=== PATIENT | female | born 1995 | race Caucasian/White ===

== ENCOUNTER 2016-07-31 08:57 | Observation (INO) | payer OTHER ==
[~2016-07-31] VITALS: Ht 167.6 cm; Wt 65.0 kg
[2016-07-31] MEDS ORDERED: ONDANSETRON INJ 2 MG/ML 2 ML VIAL IV STA (09:27)
[2016-07-31] MEDS ORDERED: SODIUM CHLORIDE 0.9% 1000ML 1,000 ML IV STA (09:27)
[2016-07-31] MEDS ORDERED: KETOROLAC TROMETHAMINE 30 MG/ML VIAL IV STA (09:27)
[2016-07-31 09:41] LABS: URINE APPEARANCE CLOUDY (CLEAR); URINE BILIRUBIN NEG (NEG); URINE COLOR YELLOW; URINE NITRITE NEG (NEG); URINE PH 7.5 (4.5-7.5); URINE SPECIFIC GRAVITY 1.015 (1.000-1.030); UROBILINOGEN NEG (NEG); ZZUR CULT IF INDIC CLEAN CATCH NO
[2016-07-31 09:41] LABS: BASO % 0.5 %; BASO ABS # 0.03 K/uL (0-0.2); COMPLETE YES; EOS % 1.2 %; HEMATOCRIT 40.7 % (37-47); IG% 0.2 %; LYMPH ABS # 2.49 K/uL (1.2-3.4); MEAN CELL VOLUME 88.7 fL (80-100); MEAN CORPUSCULAR HEMOGLOBIN 30.1 pg (25-34); MEAN CORPUSCULAR HGB CONC 33.9 g/dl (32-36); MEAN PLATELET VOLUME 10.2 fL (7.4-10.4); MONO % 5.3 %; NEUT % 51.8 %; PLATELET COUNT 218 K/uL (130-400); RED BLOOD COUNT 4.59 M/uL (4.2-5.4); WHITE BLOOD COUNT 6.07 K/uL (4.8-10.8)
[2016-07-31 09:43] LABS: MANUAL MICROSCOPIC REQUIRED? NO; REVIEW REQ? NO
[2016-07-31] MEDS ORDERED: OPTIRAY 320 IV PRN (09:45)
[2016-07-31 09:58] LABS: AST/SGOT 43 U/L (15-37); BLOOD UREA NITROGEN 14 mg/dl (7-18); BUN/CREATININE RATIO 20.2 (10-20); CALCIUM 9.1 mg/dl (8.5-10.1); CARBON DIOXIDE 29 mmol/L (21-32); CHLORIDE 106 mmol/L (98-107); CREATININE 0.69 mg/dl (0.60-1.20); GLUCOSE 82 mg/dl (70-99); POTASSIUM 4.3 mmol/L (3.5-5.1); SODIUM 141 mmol/L (136-145)
[2016-07-31 10:00] LABS: ALKALINE PHOSPHATASE 72 U/L (45-117); ALT/SGPT 79 U/L (12-78)
--- NOTE | 2016-07-31 12:12 | DIAGNOSTIC IMAGING REPORT ---
CT OF THE ABDOMEN AND PELVIS WITH CONTRAST CLINICAL HISTORY: Periumbilical pain. COMPARISON STUDY: None. TECHNIQUE: Following IV administration of 118 mL of Optiray-320, axial images of the abdomen and pelvis were obtained from the lung bases to the proximal femurs. Images were reviewed in the axial, sagittal, and coronal planes. IV contrast was administered without complication. Oral contrast was administered. CT DOSE: 284.23 mGy.cm FINDINGS: The lung bases are clear. Liver, spleen, adrenal glands, kidneys and pancreas are normal. There is no peripancreatic or pericholecystic infiltration. There is no biliary or pancreatic ductal dilatation. The caliber and wall thickness of small and large bowel are normal. The appendix is mildly dilated and fluid-filled. The appendix measures 7 mm in caliber. There is mild periappendiceal infiltration with no free air or abscess. Trace fluid within the pelvis is noted. The ovaries are not enlarged. Skeletal structures are unremarkable. IMPRESSION: Acute appendicitis. No free air or abscess. Mildly dilated, fluid-filled retrocecal appendix with mild periappendiceal infiltration. Electronically signed by: Yoel Polo M.D. 07/31/2016 12:11 PM Dictated Date/Time: 07/31/2016 12:07 PM
[2016-07-31] MEDS ORDERED: CEFOXITIN SOD 2 GM VIAL IV STA (12:56)
--- NOTE | 2016-07-31 12:56 | History and Physical ---
History & Physical Date Jul 31, 2016. 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 Past Medical/Surgical History Medical Problems: (1) Mononucleosis Additional History Hepatic Disease: No Endocrine Disorder: No Kidney Disease: No Hypertension: No Heart Disease: No Bleeding Tendencies: No Allergies Coded Allergies: No Known Allergies (Unverified , 07/31/16) Home Medications No Active Prescriptions or Reported Meds Physical Examination Skin: warm/dry Eyes: sclerae normal Head: atraumatic Neck: supple Respiratory/Chest: no respiratory distress Cardiovascular: regular rate, rhythm Abdomen / GI: normal bowel sounds, + pertinent finding (tender- Rt side) Extremities: normal inspection Neurologic/Psych: alert Diagnosis acute appendicitis Plan of Treatment for laparoscopic appendectomy, possible open operation admit for observation
[2016-07-31] MEDS ORDERED: BUPIVACAINE 0.5 % 5 MG/1 ML MPF 30ML VIAL ONE (13:17)
[2016-07-31] MEDS ORDERED: SUCCINYLCHOLINE 100MG/5ML SYR IV ONE (13:43)
[2016-07-31] MEDS ORDERED: LIDOCAINE HCL 2% 2 ML VIAL (20MG/ML) ONE (13:43)
[2016-07-31] MEDS ORDERED: PROPOFOL IV EMULSION 10 MG/ML 20 ML VIAL IV ONE (13:43)
[2016-07-31] MEDS ORDERED: MIDAZOLAM HCL 1 MG/ML 2ML VIAL ONE (13:44)
[2016-07-31] MEDS ORDERED: FENTANYL CITRATE INJ 50 MCG/1 ML 2 ML VIAL ONE ×2 (13:44→15:00)
[2016-07-31] MEDS ORDERED: GLYCOPYRROLATE INJ 0.2 MG/ML VIAL ONE (14:29)
[2016-07-31] MEDS ORDERED: KETOROLAC TROMETHAMINE 30 MG/ML VIAL ONE (14:29)
[2016-07-31] MEDS ORDERED: ROCURONIUM BROMIDE 10 MG/ML 5 ML VIAL ONE (14:29)
[2016-07-31] MEDS ORDERED: ONDANSETRON INJ 2 MG/ML 2 ML VIAL ONE (14:29)
[2016-07-31] MEDS ORDERED: DEXAMETHASONE SOD INJ 4 MG/ML VIAL ONE (14:29)
[2016-07-31] MEDS ORDERED: NEOSTIGMINE METHYLSULFATE 5 MG/5 ML SYR ONE (14:29)
[2016-07-31] MEDS ORDERED: ONDANSETRON INJ 2 MG/ML 2 ML VIAL IV PRN ×2 (15:15)
[2016-07-31] MEDS ORDERED: HYDROCODONE/ACETAMOPHEN 5/325MG TAB PO PRN (15:15)
[2016-07-31] MEDS ORDERED: EpHEDrine SULFATE INJ 50 MG/ML AMP IV PRN (15:15)
[2016-07-31] MEDS ORDERED: HYDROmorphone INJ 1 MG/ML SYR IV PRN (15:15)
[2016-07-31] MEDS ORDERED: FENTANYL CITRATE INJ 50 MCG/1 ML 2 ML VIAL IV PRN (15:15)
[2016-07-31] MEDS ORDERED: MoRPHine SULFATE 4 MG/ML 1 ML CARP\\VIAL IV PRN (15:15)
[2016-07-31] MEDS ORDERED: PROMETHAZINE HCL INJ 6.25 MG in SODIUM CHLORIDE 0.9% 50ML 50 ML IV PRN (15:15)
[2016-07-31] MEDS ORDERED: ATROPINE SULFATE 0.1 MG/ML 5ML SYR IV PRN (15:15)
[2016-07-31] MEDS ORDERED: PROMETHAZINE HCL INJ 25 MG in SODIUM CHLORIDE 0.9% 50ML 50 ML IV PRN (15:15)
[2016-07-31] MEDS ORDERED: HYDR-5688 PO (15:19)
--- NOTE | 2016-07-31 15:21 | Discharge Instructions ---
Discharge Instructions Admission Reason for Admission: Severe Stomach Pain Discharge Discharge Diagnosis / Problem: acute appendicitis Discharge Goals Goal(s): Decrease discomfort, Improve function, Improve disease control Activity Recommendations Activity Limitations: as noted below Lifting Limitations: no more than 25 pounds Exercise/Sports Limitations: until after follow-up appointment May Resume Sexual Activity: when tolerated Shower/Bathe: tomorrow Driving or Machine Use: resume 3 days after discharge SPECIAL CARE INSTRUCTIONS: * Cover incisions and change daily for comfort/drainage. * Leave steri strips and may leave uncovered with dermabond * May use ibuprofen for pain as tolerated. * Expect some swelling and bruising. Call your doctor if: * Temperature above 101 degrees * Pain not relieved by pain medicine ordered * There is increased drainage or redness from any incision * You have any unanswered questions or concerns [phone]. FOLLOW UP VISIT: If not already scheduled, please call the office for a follow-up visit. for 1-2 weeks- for checkup- no sutures to remove OFFICE PHONE NUMBER: Dr. Bradshaw Office . Current Hospital Diet Patient's current hospital diet: Regular Diet Discharge Diet Recommended Diet: Regular Diet Procedures Procedures Performed: Laparoscopic Appendectomy Pending Studies Studies pending at discharge: no School Instructions Return To School: 1 week (will need at least 1 week recovery from school) Medical Emergencies . Who to Call and When: Medical Emergencies: If at any time you feel your situation is an emergency, please call 911 immediately. . Non-Emergent Contact Non-Emergency issues call your: Surgeon . "Provider Documentation" section prepared by Mehran rBadshaw. VTE Core Measure Inpt VTE Proph given/why not?: SCD's
[2016-07-31] MEDS ORDERED: IV FLUIDS COMPLETED PRN (15:30)
[2016-07-31] MEDS ORDERED: DiphenhydrAMINE HCL 50 MG/ML VIAL ONE (15:37)
[2016-07-31] MEDS ORDERED: NURSING VERBAL MED ORDER ONE (16:00)
[2016-07-31 16:10] VITALS: BP_SYST 113; BP_SYST 114; BP_DIAS 70; BP_DIAS 74; PULSE 55; TEMP 36.7; TEMP 37; O2SAT 100; Ht 167.6 cm; Wt 65.0 kg
[2016-07-31 16:41] VITALS: BP 112/72; PULSE 59; TEMP 36.7; O2SAT 98
--- NOTE | 2016-07-31 16:45 | Anesthesiology Progress Note ---
Anesthesia Post Op Note Date & Time Jul 31, 2016 at 16:45 Vital Signs Pain Intensity: 0 Vital Signs Past 12 Hours Date Time Temp Pulse Resp B/P Pulse Ox O2 Delivery O2 Flow Rate FiO2 07/31/16 16:41 36.7 59 16 112/72 98 Room Air 07/31/16 16:10 36.7 55 17 114/74 100 Room Air 07/31/16 15:55 36.4 61 16 115/72 100 Room Air 07/31/16 15:45 66 16 117/77 100 Room Air 07/31/16 15:35 69 16 117/71 100 Room Air 07/31/16 15:25 52 16 113/69 100 Mask 10 07/31/16 15:15 51 16 118/72 99 Mask 10 07/31/16 15:07 36.6 61 16 111/69 99 Mask 10 07/31/16 13:34 66 20 121/87 99 Room Air 07/31/16 12:37 69 16 135/76 98 Room Air 07/31/16 10:54 57 16 104/57 100 Room Air 07/31/16 09:03 36.5 73 16 108/65 97 Room Air Notes Mental Status: alert / awake / arousable, participated in evaluation Pt Amnestic to Procedure: Yes Nausea / Vomiting: adequately controlled Pain: adequately controlled Airway Patency, RR, SpO2: stable & adequate BP & HR: stable & adequate Hydration State: stable & adequate Anesthetic Complications: no major complications apparent
--- NOTE | 2016-07-31 17:03 | EMERGENCY ROOM VISIT NOTE ---
History Report prepared by Radhaibhenry: Kei Medina Under the Supervision of: Dr. Chris Morataya D.O. First contact with patient: 09:18 Chief Complaint: ABDOMINAL PAIN Stated Complaint: SEVERE STOMACH PAIN Nursing Triage Summary: Triage Note: Pt reports she was dx with mono several weeks ago. pt reports generalized abd pain started this am. pt denies any nausea, vomitting, diarrhea, constipation. History of Present Illness The patient is a 21 year old female who presents to the Emergency Room with complaints of persistent diffuse abdominal pain that started when she woke up this morning. The pain is cramping in nature and is worsened with movement. The patient had similar pain when she was first diagnosed with [place] two weeks ago. There are no relieving factors known to the patient at this time. The patient's last bowel movement was this morning which was normal and did not contain blood. The patient still has her gallbladder and appendix and has not had any abdominal surgeries. The patient did not eat or drink this morning and did not have anything unusual to eat or drink last night. She denies any medical problems. LNMP was two weeks ago. She denies headache, change in vision, fevers , chest pain, shortness of breath, nausea, vomiting, diarrhea, pain with urination, melena, and vaginal bleeding or discharge. Source of History: patient Onset: this morning Position: abdomen Quality: cramping Timing: other (persistent) Modifying Factors (Worsening): movement Associated Symptoms: No SOB, No chest pain, No diarrhea, No fevers, No headache, No melena, No nausea, No urinary symptoms, No vomiting Review of Systems See HPI for pertinent positives & negatives. A total of 10 systems reviewed and were otherwise negative. Past Medical & Surgical Medical Problems: (1) Acute appendicitis (2) Mononucleosis Family History No pertinent family history Social History Smoking Status: Never Smoker Occupation Status: [employer] student Current/Historical Medications Scheduled PRN Hydrocodone/Acetaminophen 5MG/325MG ([place] 5MG/325MG), 1-2 TABLET PO q 6 hrs PRN for Pain Allergies Coded Allergies: No Known Allergies (Unverified , 07/31/16) Physical Exam Vital Signs Date Time Temp Pulse Resp B/P Pulse Ox O2 Delivery O2 Flow Rate FiO2 07/31/16 15:07 36.6 61 16 111/69 99 Mask 10 07/31/16 13:34 66 20 121/87 99 Room Air 07/31/16 12:37 69 16 135/76 98 Room Air 07/31/16 10:54 57 16 104/57 100 Room Air 07/31/16 09:03 36.5 73 16 108/65 97 Room Air Physical Exam GENERAL: Sitting up in bed, alert, well appearing, well nourished, no distress, non-toxic EYE EXAM: normal conjunctiva. OROPHARYNX: no exudate, no erythema, lips, buccal mucosa, and tongue normal and mucous membranes are moist NECK: supple, no nuchal rigidity, no adenopathy, non-tender LUNGS: Clear to auscultation. Normal chest wall mechanics HEART: no murmurs, S1 normal and S2 normal ABDOMEN: abdomen soft, non-tender, normo-active bowel sounds, no masses, no rebound or guarding. BACK: Back is symmetrical on inspection and there is no deformity, no midline tenderness, no CVA tenderness. SKIN: no rashes and no bruising UPPER EXTREMITIES: upper extremities are grossly normal. LOWER EXTREMITIES: No pitting edema. NEURO EXAM: Normal sensorium, cranial nerves II-XII grossly intact, normal speech, no gross weakness of arms, no gross weakness of legs. Gross sensation intact. Medical Decision & Procedures ER Provider Diagnostic Interpretation: CT:Per my review, radiologist interpretation. CT OF THE ABDOMEN AND PELVIS WITH CONTRAST CLINICAL HISTORY: Periumbilical pain. COMPARISON STUDY: None. TECHNIQUE: Following IV administration of 118 mL of Optiray-320, axial images of the abdomen and pelvis were obtained from the lung bases to the proximal femurs. Images were reviewed in the axial, sagittal, and coronal planes. IV contrast was administered without complication. Oral contrast was administered. CT DOSE: 284.23 mGy.cm FINDINGS: The lung bases are clear. Liver, spleen, adrenal glands, kidneys and pancreas are normal. There is no peripancreatic or pericholecystic infiltration. There is no biliary or pancreatic ductal dilatation. The caliber and wall thickness of small and large bowel are normal. The appendix is mildly dilated and fluid-filled. The appendix measures 7 mm in caliber. There is mild periappendiceal infiltration with no free air or abscess. Trace fluid within the pelvis is noted. The ovaries are not enlarged. Skeletal structures are unremarkable. IMPRESSION: Acute appendicitis. No free air or abscess. Mildly dilated, fluid-filled retrocecal appendix with mild periappendiceal infiltration. Electronically signed by: Yoel Polo M.D. 07/31/2016 12:11 PM Dictated Date/Time: 07/31/2016 12:07 PM Laboratory Results 07/31/16 09:15 Red Blood Count 4.59, Mean Corpuscular Volume 88.7, Mean Corpuscular Hemoglobin 30.1, Mean Corpuscular Hemoglobin Concent 33.9, Mean Platelet Volume 10.2, Neutrophils (%) (Auto) 51.8, Lymphocytes (%) (Auto) 41.0, Monocytes (%) (Auto) 5.3, Eosinophils (%) (Auto) 1.2, Basophils (%) (Auto) 0.5, Neutrophils # (Auto) 3.15, Lymphocytes # (Auto) 2.49, Monocytes # (Auto) 0.32, Eosinophils # (Auto) 0.07, Basophils # (Auto) 0.03 07/31/16 09:15 Test 07/31/16 09:10 07/31/16 09:15 Urine Color YELLOW Urine Appearance CLOUDY (CLEAR) Urine pH 7.5 (4.5-7.5) Urine Specific [place] 1.015 (1.000-1.030) Urine Protein NEG (NEG) Urine Glucose (UA) NEG (NEG) Urine Ketones NEG (NEG) Urine Occult Blood NEG (NEG) Urine Nitrite NEG (NEG) Urine Bilirubin NEG (NEG) Urine Urobilinogen NEG (NEG) Urine Leukocyte Esterase NEG (NEG) Urine WBC (Auto) 1-5 /hpf (0-5) Urine RBC (Auto) 0-4 /hpf (0-4) Urine Hyaline Casts (Auto) 0 /lpf (0-5) Urine Epithelial Cells (Auto) 5-10 /lpf (0-5) Urine Bacteria (Auto) NEG (NEG) Urine Test NEG (NEG) White Blood Count 6.07 K/uL (4.8-10.8) Red Blood Count 4.59 M/uL (4.2-5.4) Hemoglobin 13.8 g/dL (12.0-16.0) Hematocrit 40.7 % (37-47) Mean Corpuscular Volume 88.7 fL (80-100) Mean Corpuscular Hemoglobin 30.1 pg (25-34) Mean Corpuscular Hemoglobin Concent 33.9 g/dl (32-36) Platelet Count 218 K/uL (130-400) Mean Platelet Volume 10.2 fL (7.4-10.4) Neutrophils (%) (Auto) 51.8 % Lymphocytes (%) (Auto) 41.0 % Monocytes (%) (Auto) 5.3 % Eosinophils (%) (Auto) 1.2 % Basophils (%) (Auto) 0.5 % Neutrophils # (Auto) 3.15 K/uL (1.4-6.5) Lymphocytes # (Auto) 2.49 K/uL (1.2-3.4) Monocytes # (Auto) 0.32 K/uL (0.11-0.59) Eosinophils # (Auto) 0.07 K/uL (0-0.5) Basophils # (Auto) 0.03 K/uL (0-0.2) RDW Standard Deviation 39.9 fL (36.4-46.3) RDW Coefficient of Variation 12.5 % (11.5-14.5) Immature Granulocyte % (Auto) 0.2 % Immature Granulocyte # (Auto) 0.01 K/uL (0.00-0.02) Anion Gap 6.0 mmol/L (3-11) Est Creatinine Clear Calc Drug Dose 120.7 ml/min Estimated GFR () 144.2 Estimated GFR (Non- 124.4 BUN/Creatinine Ratio 20.2 (10-20) Calcium Level 9.1 mg/dl (8.5-10.1) Total Bilirubin 0.3 mg/dl (0.2-1) Direct Bilirubin < 0.1 mg/dl (0-0.2) Aspartate Amino Transf (AST/SGOT) 43 U/L (15-37) Alanine Aminotransferase (ALT/SGPT) 79 U/L (12-78) Alkaline Phosphatase 72 U/L (45-117) Total Protein 7.1 gm/dl (6.4-8.2) Albumin 3.7 gm/dl (3.4-5.0) Lipase 119 U/L (73-393) Laboratory results per my review. Medications Administered Medications (Trade) Dose Ordered Sig/Jn Route Start Time Stop Time Status Last Admin Dose Admin Sodium Chloride (Nss 1000ml) 1,000 ml @ 999 mls/hr Q1H1M STAT IV 07/31/16 09:27 07/31/16 10:27 DC 07/31/16 09:36 999 MLS/HR Ondansetron HCl (Zofran Inj) 4 mg NOW STAT IV 07/31/16 09:27 07/31/16 09:28 DC 07/31/16 09:35 4 MG Ketorolac Tromethamine (Toradol Inj) 30 mg NOW STAT IV 07/31/16 09:27 07/31/16 09:28 DC 07/31/16 09:34 30 MG Cefoxitin Sodium (Mefoxin IV) 2,000 mg NOW STAT IV 07/31/16 12:56 07/31/16 12:59 DC 07/31/16 13:30 2,000 MG Bupivacaine HCl (Marcaine 0.5% MPF Inj) 30 ml STK-MED ONCE .ROUTE 07/31/16 13:17 07/31/16 13:20 DC 07/31/16 13:17 8 ML ED Course ED COURSE: Vital signs were reviewed and were normal. The patients medical record was reviewed The above diagnostic studies were performed and reviewed. ED treatments and interventions as stated above. 0922: The patient was evaluated in room A4b. A complete history and physical examination was performed. 0927: Toradol 30 mg IV, Zofran 4 mg IV, NSS 1000 ml @ 999 mls/hr. 1126: The patient is feeling much better. 1232: Spoke with Dr. Bradshaw, General Surgeon. The patient will be evaluated. 1245: Upon reevaluation, the patient is feeling okay.I discussed my findings with the patient and she understands and agrees with the treatment plan. Based on the patients age, coexisting illnesses, exam and lab findings the decision to treat as an inpatient was made. The patient remained stable while under my care. Medical Decision Differential diagnoses includes but is not limited to gastritis, peptic ulcer disease, GERD, gallbladder disease, pancreatitis, small bowel obstruction, acute coronary syndrome, pericarditis, ischemic bowel, irritable bowel disease, irritable bowel syndrome, appendicitis, diverticulitis, malignancy, hernia, urinary tract infection, torsion, /ectopic (if female), perforation, trauma, infectious. Patient is a 21-year-old female with generalized abdominal pain which has been worsening. She describes as a diffuse cramping pain. Labs show slight elevation in her AST/ALTs possible secondary to mono. CT of her abdomen pelvis shows acute appendicitis. Pain was controlled while in the ER. She is given a bolus normal saline. Patient was admitted to general surgery with acute appendicitis. Consults Time Called: 1230 Consulting Physician: Dr. Bradshaw, General Surgeon. Returned Call: [phone]: Spoke with Dr. Bradshaw, General Surgeon. The patient will be evaluated. Impression Primary Impression: Appendicitis Scribe Attestation The scribe's documentation has been prepared under my direction and personally reviewed by me in its entirety. I confirm that the note above accurately reflects all work, treatment, procedures, and medical decision making performed by me. Departure Information Dispostion Being Evaluated By Surgeon Prescriptions Hydrocodone/Acetaminophen 5MG/325MG ([place] 5MG/325MG) Tab 1-2 TABLET PO q 6 hrs Y for Pain, #30 TAB PRN PAIN Prov: Mehran Bradshaw M.D. 07/31/16 Referrals No Doctor, Assigned (PCP) Patient Instructions My [facility] Problem Qualifiers Primary Impression: Appendicitis Appendicitis type: acute appendicitis Acute appendicitis type: other Qualified Codes: K35.89 - Other acute appendicitis
[2016-07-31 17:50] VITALS: BP 113/70; PULSE 68; TEMP 37; O2SAT 96
--- NOTE | 2016-07-31 18:01 | OPERATIVE REPORT ---
DATE OF OPERATION: 07/31/2016 NAME OF OPERATION: Laparoscopic appendectomy. PREOPERATIVE DIAGNOSIS: Acute appendicitis. POSTOPERATIVE DIAGNOSIS: Same. STAFF SURGEON: Mehran Bradshaw MD [employer] ARCHITECT: Jaspreet Montalvo PA-C ANESTHESIA: General. DESCRIPTION OF PROCEDURE: The patient was brought in the operating room and placed on the operating table in supine position. Maldonado catheter, orogastric tube, pneumatic stockings were placed. Her abdomen was prepped and draped in usual fashion. Using 0.5% plain Marcaine, skin and subcutaneous tissue above the umbilicus were anesthetized. Incision made carrying dissection down to the fascia, placing a Veress needle producing pneumoperitoneum. A second 5 mm port was placed just above the pubic bone in the suprapubic area and a 12 mm port placed in the left lower quadrant, all under visualization. Again, a 5 mm port was placed at the umbilicus. Using a 5 mm camera through the umbilicus, the cecum was reflected. The appendix was retrocecal and it was apparent that the base was normal but the tip of the appendix was inflamed and adherent. The base of the appendix was transected using an Endo-KATHI stapler and then gradually working up the long appendix and mesentery. The mesentery was transected using the Endo-KATHI stapler. I did have to dissect the tip of the appendix away from the cecum secondary to adhesions. At this point, the appendix was placed in an Endobag and removed through the 12 mm site and then using irrigation and hemostasis, the wound was irrigated and felt to be hemostatic. At this point, all ports were removed. The fascia in the left lower quadrant was reapproximated using 0 Vicryl suture and the skin reapproximated using subcuticular 5-0 Monocryl. Dermabond used on the umbilical and suprapubic area and then Steri-Strips on the left lower quadrant. The patient transferred to recovery room in stable condition. I attest to the content of the Intraoperative Record and any orders documented therein. Any exceptio ns are noted below.
[2016-07-31] MEDS: LACTATED RINGER'S 1000ML 1,000 ML IV SCH (18:06)
[2016-07-31] MEDS: HYDROCODONE/ACETAMOPHEN 5/325MG TAB PO PRN ×2 (18:07→21:38)
[2016-07-31 19:11] VITALS: BP 117/72; PULSE 68; TEMP 36.8; O2SAT 96
[2016-07-31 19:53] LABS: HEMATOCRIT 37.8 % (37-47)
[2016-07-31] MEDS: CEFOXITIN IV 1,000 MG in DEXTROSE 5% 50ML 50 ML IV SCH (21:37)
[2016-07-31] MEDS: MoRPHine SULFATE 2 MG/ML CARP IV PRN (22:35)
[2016-07-31 23:09] VITALS: BP 102/57; PULSE 58; TEMP 37; O2SAT 96
[2016-08-01 03:10] VITALS: BP 95/53; PULSE 56; TEMP 36.7; O2SAT 95
[2016-08-01] MEDS: LACTATED RINGER'S 1000ML 1,000 ML IV SCH (04:23)
[2016-08-01] MEDS: MoRPHine SULFATE 2 MG/ML CARP IV PRN (04:27)
[2016-08-01] MEDS: CEFOXITIN IV 1,000 MG in DEXTROSE 5% 50ML 50 ML IV SCH (05:38)
[2016-08-01 07:04] VITALS: BP 101/57; PULSE 49; TEMP 36.7; O2SAT 97
[2016-08-01 07:10] LABS: HEMATOCRIT 34.8 % (37-47); MEAN CELL VOLUME 87.4 fL (80-100); MEAN CORPUSCULAR HEMOGLOBIN 30.2 pg (25-34); MEAN CORPUSCULAR HGB CONC 34.5 g/dl (32-36); MEAN PLATELET VOLUME 10.4 fL (7.4-10.4); PLATELET COUNT 216 K/uL (130-400); RED BLOOD COUNT 3.98 M/uL (4.2-5.4); WHITE BLOOD COUNT 11.56 K/uL (4.8-10.8)
[2016-08-01 07:33] LABS: CALCIUM 8.6 mg/dl (8.5-10.1); CREATININE 0.87 mg/dl (0.60-1.20)
[2016-08-01] MEDS: HYDROCODONE/ACETAMOPHEN 5/325MG TAB PO PRN ×2 (08:10→12:51)
--- NOTE | 2016-08-01 09:46 | DISCHARGE SUMMARY ---
DATE OF DISCHARGE: 08/01/2016. PRINCIPAL DIAGNOSIS: Acute appendicitis. PROCEDURE: The patient underwent laparoscopic appendectomy. HISTORY OF PRESENT ILLNESS: The patient is a 21-year-old female who developed severe abdominal pain, somewhat nonspecific, brought to the Emergency Room and under CT scan was found to have acute appendicitis. HOSPITAL COURSE: The patient was brought in through the Emergency Room, taken to the operating room. She underwent laparoscopic appendectomy. She had a relatively long retrocecal appendix with an inflamed, dilated tip of the appendix consistent with acute appendicitis. She tolerated the procedure well, has done quite well overnight and is felt stable for discharge home later today if she is able to take oral pain medication.
[2016-08-01 12:27] VITALS: BP 101/57; PULSE 49; TEMP 36.7; O2SAT 97
== END 2016-08-01 13:39 | disposition home or self-care (01) ==
LOC: ENRESERVDT → ENRESERVTM → C.EDB 08:59 → C.MSW 15:11
PROVIDERS: ADMIT Surgery; ATTEND Surgery
DX: K35.80 Unspecified acute appendicitis (principal); Z86.19 Personal history of other infectious and parasitic diseases